=== PATIENT | female | born 1965 | race Caucasian/White ===

== ENCOUNTER 2020-11-09 08:48 | Outpatient (REF) | payer BC, SELFPAY ==
[2020-11-09 11:32] LABS: Glucose Urine UA NEG (NEG); Leukocyte Esterase Urine NEG (NEG); Nitrite Urine NEG (NEG); Specific Gravity - Urine 1.025 (1.005-1.025); Urine Blood TRACE (NEG); Urine Ketones NEG (NEG); Urine Protein NEG (NEG-TRACE)
[2020-11-09 11:35] LABS: Appearance Urine CLEAR; Color Urine YELLOW
[2020-11-09 11:47] LABS: Hematocrit 39.8 % (37-47); Hemoglobin 12.9 g/dl (12.0-16.0); Mean Corpuscular HGB Conc 32.4 g/dl (31.0-35.0); Mean Corpuscular Hemoglobin 30.9 pg (27.0-33.0); Mean Corpuscular Volume 95.2 fL (80-98); Mean Platelet Volume 11.2 fL (9.4-12.3); Platelet Count 305 X10*3/uL (160-400); Red Blood Count 4.18 X10*6/uL (4.20-5.50); Red Cell Distribution Width 12.2 % (11.0-16.0); White Blood Count 4.5 X10*3/uL (4.8-10.8)
[2020-11-09 12:00] LABS: RBC Urine 0-2 /HPF (0); Squamous Epithelial Cell Urine TRACE /LPF; WBC Urine 0 /HPF (0-4)
[2020-11-09 12:09] LABS: Alanine Aminotransferase 19 U/L (0-31); Albumin Level 4.2 g/dL (3.5-5.0); Alkaline Phosphatase 100 U/L (39-117); Anion Gap 11 (12-20); Aspartate Amino Transferase 31 U/L (5-31); Bilirubin Total 0.8 mg/dL (0.0-1.0); Blood Urea Nitrogen 18 mg/dL (9-16); Calcium 9.4 mg/dL (8.4-10.2); Carbon Dioxide 27 mmol/L (22-29); Chloride 107 mmol/L (96-108); Cholesterol 230 mg/dL; Estimated Glomerular Filt Rate > 60; Glucose Fasting 96 mg/dL (60-99); HDL Cholesterol 58 mg/dL; LDL Cholesterol Calculated 154 mg/dl; Potassium 4.4 mmol/L (3.3-5.1); Sodium 141 mmol/L (135-145); Total Protein 6.7 g/dL (6.5-8.0); Triglycerides 91 mg/dL
[2020-11-09 12:16] LABS: TSH reflex Free T4 0.91 uIU/mL (0.32-4.0); Vitamin D 25-OH Total 33.5 ng/mL (>30)
== END 2020-11-09 08:49 | disposition home or self-care (01) ==
LOC: HO.HMGCLDS 08:48
PROVIDERS: PCP Internal Medicine; Visit Provider Internal Medicine
DX: Z00.00 Encounter for general adult medical examination without abnormal findings (principal); Z86.39 Personal history of other endocrine, nutritional and metabolic disease; Z90.710 Acquired absence of both cervix and uterus
CPT/HCPCS: 36415; 80053; 80061; 81001; 82306; 84443; 85027

== ENCOUNTER 2021-07-14 10:00 | Outpatient (REF) | payer BC, SELFPAY ==
[2021-07-14 11:28] LABS: Hematocrit 39.8 % (37.0-47.0); Hemoglobin 13.3 g/dl (12.0-16.0); Mean Corpuscular HGB Conc 33.4 g/dl (31.0-35.0); Mean Corpuscular Hemoglobin 31.5 pg (27.0-33.0); Mean Corpuscular Volume 94.3 fL (80.0-98.0); Mean Platelet Volume 10.2 fL (9.4-12.3); Platelet Count 315 X10*3/uL (160-400); Red Blood Count 4.22 X10*6/uL (4.20-5.50); Red Cell Distribution Width 11.9 % (11.0-16.0); White Blood Count 6.6 X10*3/uL (4.8-10.8)
[2021-07-14 11:52] LABS: Alanine Aminotransferase 17 U/L (0-31); Albumin Level 4.2 g/dL (3.5-5.0); Alkaline Phosphatase 107 U/L (39-117); Anion Gap 11 (12-20); Aspartate Amino Transferase 22 U/L (5-31); Bilirubin Total 0.7 mg/dL (0.0-1.0); Blood Urea Nitrogen 18 mg/dL (9-16); Calcium 9.8 mg/dL (8.4-10.2); Carbon Dioxide 29 mmol/L (22-29); Chloride 103 mmol/L (96-108); Cholesterol 259 mg/dL; Estimated Glomerular Filt Rate > 60; Glucose Fasting 93 mg/dL (60-99); HDL Cholesterol 61 mg/dL; LDL Cholesterol Calculated 181 mg/dl; Potassium 4.6 mmol/L (3.3-5.1); Sodium 138 mmol/L (135-145); Total Protein 7.1 g/dL (6.5-8.0); Triglycerides 88 mg/dL
[2021-07-14 12:14] LABS: Vitamin D 25-OH Total 34.8 ng/mL (>30)
== END 2021-07-14 10:01 | disposition home or self-care (01) ==
LOC: HO.HMGCLDS 10:00
PROVIDERS: PCP Internal Medicine; Visit Provider Internal Medicine
DX: Z00.00 Encounter for general adult medical examination without abnormal findings (principal); Z13.220 Encounter for screening for lipoid disorders
CPT/HCPCS: 36415; 80053; 80061; 82306; 85027

== ENCOUNTER 2021-11-04 12:19 | Outpatient (REF) | payer BC, SELFPAY ==
[2021-11-04 13:52] LABS: Hematocrit 38.3 % (37.0-47.0); Hemoglobin 12.7 g/dl (12.0-16.0); Mean Corpuscular HGB Conc 33.2 g/dl (31.0-35.0); Mean Corpuscular Hemoglobin 31.1 pg (27.0-33.0); Mean Corpuscular Volume 93.6 fL (80.0-98.0); Mean Platelet Volume 10.2 fL (9.4-12.3); Platelet Count 350 X10*3/uL (160-400); Red Blood Count 4.09 X10*6/uL (4.20-5.50); Red Cell Distribution Width 12.3 % (11.0-16.0); White Blood Count 6.3 X10*3/uL (4.8-10.8)
[2021-11-04 14:00] LABS: Appearance Urine CLEAR; Color Urine YELLOW; Glucose Urine UA NEG (NEG); Leukocyte Esterase Urine NEG (NEG); Nitrite Urine NEG (NEG); Specific Gravity - Urine 1.025 (1.005-1.025); Urine Blood NEG (NEG); Urine Ketones NEG (NEG); Urine Protein NEG (NEG-TRACE)
[2021-11-04 14:05] LABS: Alanine Aminotransferase 11 U/L (0-31); Albumin Level 4.1 g/dL (3.5-5.0); Alkaline Phosphatase 109 U/L (39-117); Anion Gap 11 (12-20); Aspartate Amino Transferase 20 U/L (5-31); Bilirubin Total 0.3 mg/dL (0.0-1.0); Blood Urea Nitrogen 15 mg/dL (9-16); Calcium 9.7 mg/dL (8.4-10.2); Carbon Dioxide 28 mmol/L (22-29); Chloride 104 mmol/L (96-108); Estimated Glomerular Filt Rate > 60; Glucose Random 94 mg/dL (60-115); Lipase 33 U/L (8-78); Potassium 4.1 mmol/L (3.3-5.1); Sodium 139 mmol/L (135-145); Total Protein 6.9 g/dL (6.5-8.0)
[2021-11-04 14:13] LABS: Squamous Epithelial Cell Urine TRACE /LPF
[2021-11-04 14:14] LABS: RBC Urine 0-2 /HPF (0); WBC Urine 0 /HPF (0-4)
== END 2021-11-04 12:20 | disposition home or self-care (01) ==
LOC: HO.HMGCLDS 12:19
PROVIDERS: PCP Internal Medicine; Visit Provider Internal Medicine
DX: Z00.00 Encounter for general adult medical examination without abnormal findings (principal); K57.92 Diverticulitis of intestine, part unspecified, without perforation or abscess without bleeding; R10.9 Unspecified abdominal pain; K29.70 Gastritis, unspecified, without bleeding; Z86.39 Personal history of other endocrine, nutritional and metabolic disease; Z90.710 Acquired absence of both cervix and uterus
CPT/HCPCS: 36415; 80053; 81001; 83690; 85027

== ENCOUNTER 2021-11-05 11:21 | Outpatient (REF) | payer BC, SELFPAY | END 2021-11-05 11:22 | disposition home or self-care (01) | LOC: HO.HMGCLNP 11:21 | PROVIDERS: Visit Provider Internal Medicine | DX: K29.70 Gastritis, unspecified, without bleeding (principal) | CPT/HCPCS: 87338 ==

== ENCOUNTER 2021-11-05 14:33 | Outpatient (REF) | payer BC, SELFPAY ==
--- NOTE | ~2021-11-05 | CT_ITS ---
EXAMINATION: CT ABDOMEN AND PELVIS WITH CONTRAST CLINICAL INFORMATION: Unspecified abdominal pain. COMPARISON: None TECHNIQUE: Multidetector volumetric images were obtained from the superior aspect of the liver through the pubic symphysis following administration 85 mL of Omnipaque 350 intravenous contrast. Sagittal and coronal reformatted images were obtained on the technologist's workstation. Oral contrast: No This CT examination was performed using dose optimization techniques as appropriate, variously including the following: *Automated exposure control *Adjustment of mA and/or kV according to patient size (this includes techniques or standardized protocols for targeted exams where dose is matched to indication/reason for exam; i.e. extremities or head) *Use of iterative reconstruction technique DLP: 441 mGy-cm FINDINGS: LUNG BASES: Minimal platelike atelectasis in the lingula. The lung bases are clear. The heart size is normal. A small hiatal hernia suspected. LIVER, GALLBLADDER, AND BILIARY TREE: The liver is normal in size, shape, and attenuation. No focal hepatic lesion or biliary ductal dilatation is present. The gallbladder has been surgically removed. PANCREAS: Unremarkable. SPLEEN: Unremarkable. ADRENAL GLANDS: Unremarkable. KIDNEYS AND URETERS: The kidneys are normal in size, shape, and attenuation. No hydronephrosis, hydroureter, or calculi seen. No perinephric stranding. There is a 6 mm hypodensity in the lower pole right kidney likely cyst. BLADDER: Unremarkable. GASTROINTESTINAL TRACT: There is mild mural thickening involving a segment of jejunum in the left upper mid quadrant on axial image 33/3 through 41/3. Rest of the small bowel loops are normal caliber. Scattered stool and gas is seen in the colon without distention. ABDOMINAL WALL: No significant hernia is appreciated. LYMPH NODES: Normal. VASCULAR: Unremarkable. PELVIC VISCERA: Unremarkable. OSSEOUS STRUCTURES: There are degenerative disc changes throughout lumbar spine with mild ventral spondylosis at the L2-L3 and L3-L4 disc level. No aggressive lytic or sclerotic process seen. CT/CT abdomen pelvis w con IMPRESSION: Mild mural thickening involving proximal jejunal loops suggestive of enteritis. There is no proximal bowel obstruction. No abnormal lymph nodes seen. Small hiatal hernia. Fleischner guidelines were followed.
[2021-11-05] MEDS: iohexoL 350 MG/ML 100 ML INFUS..BTL IV (17:38)
[2021-11-05] MEDS: Barium Sulfate Oral (Berry) 450 ML ORAL.SUSP 900 ML PO (17:41)
== END 2021-11-05 14:34 | disposition home or self-care (01) ==
LOC: HO.CT 14:33
PROVIDERS: PCP Internal Medicine; Visit Provider Internal Medicine
DX: K57.92 Diverticulitis of intestine, part unspecified, without perforation or abscess without bleeding (principal); R10.9 Unspecified abdominal pain
CPT/HCPCS: 74177; Q9967

== ENCOUNTER 2023-09-08 06:42 | Outpatient (REF) | payer BC, SELFPAY ==
[2023-09-08 10:16] LABS: Appearance Urine Clear; Color Urine Yellow; Glucose Urine UA Negative (Negative); Leukocyte Esterase Urine Trace (Negative); Nitrite Urine Negative (Negative); PH 5.5 (5.0-9.0); UMIC TRIGGER UACC YES; Urine Blood Negative (Negative); Urine Ketones Negative (Negative); Urine Protein Negative (Neg-Trace)
[2023-09-08 10:17] LABS: MANUAL DIFF FLAG NO
[2023-09-08 10:22] LABS: Bacteria Urine None Seen (None Seen); Hyaline Casts Urine 0-2 /LPF (0-2); RBC Urine 0-2 /HPF (0-2); Squamous Epithelial Cell Urine 0-2 /HPF (0-2); WBC Urine 0-5 /HPF (0-5)
[2023-09-08 10:23] LABS: Basophils Absolute Auto 0.1 X10*3/uL (0.0-0.2); Basophils Percent Auto 1.2 % (0-2); Eosinophils Absolute Auto 0.3 X10*3/uL (0.0-0.4); Eosinophils Percent Auto 4.6 % (0-4); Hematocrit 36.9 % (37.0-47.0); Hemoglobin 12.2 g/dl (12.0-16.0); Imm Gran Abs Auto 0.02 X10*3/uL (0.00-0.03); Imm Gran Pct Auto 0.3 % (0.0-0.4); Lymphocytes Absolute Auto 2.3 X10*3/uL (1.2-4.9); Lymphocytes Percent Auto 39.6 % (20-40); Mean Corpuscular HGB Conc 33.1 g/dl (31.0-35.0); Mean Corpuscular Hemoglobin 31.2 pg (27.0-33.0); Mean Corpuscular Volume 94.4 fL (80.0-98.0); Mean Platelet Volume 10.7 fL (9.4-12.3); Monocytes Absolute Auto 0.4 X10*3/uL (0.1-1.2); Monocytes Percent Auto 6.9 % (2-11); Neutrophils Absolute Auto 2.8 x10*3/uL (2.0-8.3); Neutrophils Percent Auto 47.4 % (45-73); Platelet Count 302 X10*3/uL (160-400); Red Blood Count 3.91 X10*6/uL (4.20-5.50); Red Cell Distribution Width 12.2 % (11.0-16.0); White Blood Count 5.8 X10*3/uL (4.8-10.8)
[2023-09-08 11:17] LABS: Alanine Aminotransferase 11 U/L (0-31); Albumin Level 3.8 g/dL (3.5-5.0); Alkaline Phosphatase 89 U/L (39-117); Anion Gap 11 (12-20); Aspartate Amino Transferase 19 U/L (5-31); Bilirubin Total 0.3 mg/dL (0.0-1.0); Blood Urea Nitrogen 21 mg/dL (9-16); Calcium 8.8 mg/dL (8.4-10.2); Carbon Dioxide 27 mmol/L (22-29); Chloride 108 mmol/L (96-108); Cholesterol 232 mg/dL (<200); Estimated Glomerular Filt Rate > 60; Glucose Fasting 89 mg/dL (60-99); HDL Cholesterol 55 mg/dL (>40); LDL Cholesterol Calculated 158 mg/dL (<100); Potassium 3.9 mmol/L (3.3-5.1); Sodium 142 mmol/L (135-145); Total Protein 6.3 g/dL (6.5-8.0); Triglycerides 95 mg/dL (<150)
[2023-09-08 11:21] LABS: TSH reflex Free T4 1.63 uIU/mL (0.32-4.0); Vitamin D 25-OH Total 29.6 ng/mL (>30)
== END 2023-09-08 06:43 | disposition home or self-care (01) ==
LOC: HO.HMGCLDS 06:42
PROVIDERS: PCP Internal Medicine; Visit Provider Internal Medicine
DX: Z00.00 Encounter for general adult medical examination without abnormal findings (principal); E78.5 Hyperlipidemia, unspecified
CPT/HCPCS: 36415; 80053; 80061; 81001; 82306; 84443; 85025

== ENCOUNTER 2023-09-08 12:53 | Outpatient (AMB) | payer BC, SELFPAY ==
--- NOTE | 2023-09-08 13:14 | A.OFFPC_ITS ---
Vital Signs 09/08/23 13:17 09/08/23 13:45 Height 5 ft 6 in Weight 178 lb BMI 28.7 BP 126/78 136/88 Blood Pressure Location Lt brachial Lt brachial Position Sitting Sitting Pulse 83 Pulse Source Pulse Oximeter Pulse Oximetry (%) 98 Oxygen Delivery Method Room Air Intake Visit Reasons: lab request Intake Note: Pt is here today for a sick visit. Pt c/o headaches on the back of her head since July. Allergies Decongestant Allergy (Unknown, Uncoded 09/08/23 13:20) increased heart rate Tobacco use date assessed: 09/08/23 Dental Screening Dental Screen Date: 09/08/23 Did you have a dental visit in the last 12 months?: Yes Did you have a dental problem in the last 6 months where you did not have access to dental care?: No Was dental information given to patient?: Patient has dentist HPI HPI Comments History of Present Illness Details Pt presents for PE. Pt c/o chronic occipital headaches and neck pain and stiffness for 1 month. The pain is worse at the end of the day. She denies any change in vision nausea vomiting weakness or numbness in extremities or change in balance. She has not been under increased stress recently. [facility] Medical History (Updated 09/08/23 @ 13:54 by Laya Becerra MD) Hyperlipidemia Diverticulitis Abdominal pain Gastritis Postmenopausal Palpitations Mammogram normal Annual physical exam DJD (degenerative joint disease), lumbar H/O mixed hyperlipidemia Anxiety Surgical History H/O total hysterectomy H/O colonoscopy Family History Father No problems noted. Mother No problems noted. Social History Housing: House Alcohol intake: current Alcohol intake frequency: a few times a week Alcohol type: wine Patient Tobacco Use Status: Never used Tobacco e-Cigarette/Vaping Use: Never Used Current occupational status: employed Cognitive needs: No Hearing needs: No Vision needs: Yes Questionnaire PHQ-9 Over the last 2 weeks, how often have you been bothered by any of the following problems? 1. Little interest or pleasure in doing things: not at all 2. Feeling down, depressed, or hopeless: not at all 3. Trouble falling or staying asleep, or sleeping too much: more than half the days 4. Feeling tired or having little energy: not at all 5. Poor appetite or overeating: several days 6. Feeling bad about yourself - or that you are a failure or have let yourself or your family down: not at all 7. Trouble concentrating on things, such as reading the newspaper or watching television: not at all 8. Moving or speaking so slowly that other people could have noticed. Or the opposite - being so fidgety or restless that you have been moving around a lot more than usual: not at all 9. Thoughts that you would be better off or of hurting yourself in some way: not at all Total score: 3 Depression Screening Interpretation: Negative Depression Screening Done: Yes Source: Developed by Drs. Julien Bellamy, Farheen Mallory, Stanislaw Hernadez and colleagues, with an educational jonnie from [employer]. Thrive Questionnaire Date Thrive assessed: 11/04/21 I am a: Patient What is your living situation today?: I have a steady place to live Within the past 12 months, did the food you bought not last and you didn't have the money to get more?: Never true Within the past 12 months, did you worry whether your food would run out before you got money to buy more?: Never true Do you have trouble paying for medicines?: No Do you have trouble getting transportation to medical appointments?: No Do you have trouble paying your heating and electricity bill?: No Do you have trouble taking care of your child, family member or friend?: No Do you have trouble with day-to-day activities such as bathing, preparing meals, shopping, managing finances, etc.?: No Are you currently unemployed and looking for a job?: No Are you interested in more education?: No Please select the resources that you would like help with: None THRIVE Score: 0 AUDIT C Alcohol Use Questionnaire (AUDIT-C) 1. How often do you have a drink containing alcohol?: 2-3 times a week 2. How many drinks containing alcohol do you have on a typical day when you are drinking?: 1 or 2 3. How often do you have six or more drinks on one occasion?: Never Total Score: 3 STEVO-7 AMB Questionnaire STEVO-7 Date STEVO - 7 assessed: 09/08/23 Feeling nervous, anxious, or on edge: 1 = Several days Not being able to stop or control worryin = Several days Worrying too much about different things: 0 = Not at all Trouble relaxin = More than half the days Being so restless that it is hard to sit still: 0 = Not at all Becoming easily annoyed or irritable: 0 = Not at all Feeling afraid as if something awful might happen: 0 = Not at all Total STEVO-7 score (0-4 normal; 5-9 mild; 10-14 moderate; 15-21 severe): 4 Source: Developed by Drs. Julien Bellamy, Farheen Mallory, Stanislaw Hernadez and colleagues, with an educational jonnie from [employer]. Review of Systems Const All systems reviewed & are unremarkable except as noted in HPI and below Reports no additional complaints Eyes Reports no additional complaints ENT Reports no additional complaints Card Reports no additional complaints Resp Reports no additional complaints GI Reports no additional complaints Reports no additional complaints Physical exam (Primary Care) Vital Signs: Last Vital Signs Pulse 83 09/08/23 13:17 BP 126/78 09/08/23 13:17 Pulse Ox 98 09/08/23 13:17 Oxygen Delivery Method Room Air 09/08/23 13:17 BMI result Body Mass Index 28.7 Tobacco/Smoking Status: Tobacco use Status Tobacco use date assessed 09/08/23 09/08/23 13:21 Patient Tobacco Use Status Never used Tobacco 09/08/23 13:21 e-Cigarette/Vaping Use Never Used 09/08/23 13:14 PHQ-9: PHQ-9 Score PHQ-9: Total score 3 09/08/23 13:23 Depression Screening Interpretation: Negative Thrive Assessment: Date of Thrive Assessment Date Thrive assessed 11/04/21 09/08/23 13:14 Const General: no acute distress HENMT Head: Yes normal to inspection Ears: hearing grossly normal bilaterally Face and sinus: Yes normal facial exam Mouth: Normal oral and palatal mucosa present Throat: Yes posterior oropharynx normal Eyes General: appearance normal, both eyes and all related structures Neck Other: A reproducible tenderness and muscle spent in paraspinal lower cervical upper thoracic region Neck: Yes no lymphadenopathy and Yes supple Resp Effort & Inspection: normal respiratory effort Auscultation: clear to auscultation bilaterally Cardio Rhythm: regular rhythm Heart sounds: S1 normal heart sound present and S2 normal heart sound present GI Inspection: Yes normal to inspection Palpation (GI): Soft to palpation Percussion: Yes normal to percussion Auscultation: normal bowel sounds Neuro Cranial nerves: Yes CN's II-XII intact bilaterally Gait exam (Neuro): Normal gait present Motor exam (neuro): 5/5 motor strength present throughout Assessment and Plan Assessment & Plan (1) Annual physical exam: Code(s): Z00.00 - Encounter for general adult medical examination without abnormal findings Plan: Well-balanced diet regular physical activity discussed with the patient. She is up-to-date with mammogram colonoscopy and had hysterectomy (2) Hyperlipidemia: Code(s): E78.5 - Hyperlipidemia, unspecified Plan: Continue low-cholesterol diet (3) Neck pain: Code(s): M54.2 - Cervicalgia Plan: Stretching neck exercises mindfulness and yoga discussed with the patient. She will return in 1 month Coding Level of Care Code Est Pt Prev Care 40-64y(04140) Diagnoses Annual physical exam Z00.00 Hyperlipidemia E78.5 Neck pain M54.2
[2023-09-08 13:17] VITALS: BP 126/78; PULSE 83; O2SAT 98; BMI 28.7
[2023-09-08 13:45] VITALS: BP 136/88
== END 2023-09-08 13:55 | disposition home or self-care (01) ==
PROVIDERS: PCP Internal Medicine; Visit Provider Internal Medicine
DX: Z00.00 Encounter for general adult medical examination without abnormal findings (principal); E78.5 Hyperlipidemia, unspecified; M54.2 Cervicalgia
CPT/HCPCS: 99396

== ENCOUNTER 2023-09-29 13:45 | Outpatient (AMB) | payer BC, SELFPAY ==
[2023-09-29 13:51] VITALS: BP 128/80; PULSE 78; O2SAT 98; BMI 28.4
--- NOTE | 2023-09-29 13:51 | MHC.PC.OV ---
Vital Signs 09/29/23 13:51 Height 5 ft 6 in Weight 176 lb BMI 28.4 BP 128/80 Blood Pressure Location Lt brachial Position Sitting Pulse 78 Pulse Source Pulse Oximeter Pulse Oximetry (%) 98 Oxygen Delivery Method Room Air Intake Visit Reasons: 1 Month Intake Note: Pt is here today for 1 month follow up visit on headaches and anxiety. Pt states that she is still not feeling good. Pt states that she had a flu 2 weeks ago. Allergies Decongestant Allergy (Unknown, Uncoded 09/29/23 13:54) increased heart rate Medication List - Last Reconciled 09/29/23 by Laya Becerra MD No Known Home Meds Tobacco use date assessed: 09/29/23 HPI 1 Month HPI Details Patient presents complaining of worsening anxiety and insomnia. She denies any external triggers. Patient has a history of anxiety and used to take Lexapro. 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 Patient denies suicidal ideation change in appetite. Patient complains of chronic sinus congestion postnasal drip and would like to see ENT for evaluation. [facility] Medical History Hyperlipidemia Diverticulitis Abdominal pain Gastritis Postmenopausal Palpitations Mammogram normal Annual physical exam DJD (degenerative joint disease), lumbar H/O mixed hyperlipidemia Anxiety Surgical History H/O total hysterectomy H/O colonoscopy Family History Father No problems noted. Mother No problems noted. Social History Housing: House Alcohol intake: current Alcohol intake frequency: a few times a week Alcohol type: wine Patient Tobacco Use Status: Never used Tobacco e-Cigarette/Vaping Use: Never Used Current occupational status: employed Cognitive needs: No Hearing needs: No Vision needs: Yes Questionnaire Thrive Questionnaire Date Thrive assessed: 11/04/21 STEVO-7 AMB Questionnaire STEVO-7 Date STEVO - 7 assessed: 09/08/23 Source: Developed by Drs. Julien Bellamy, Farheen Mallory, Stanislaw Hernadez and colleagues, with an educational jonnie from [employer]. Review of Systems Const All systems reviewed & are unremarkable except as noted in HPI and below Reports no additional complaints Eyes Reports no additional complaints ENT Reports no additional complaints Card Reports no additional complaints Resp Reports no additional complaints GI Reports no additional complaints Reports no additional complaints Physical exam (Primary Care) Vital Signs: Last Vital Signs Pulse 78 09/29/23 13:51 BP 128/80 09/29/23 13:51 Pulse Ox 98 09/29/23 13:51 Oxygen Delivery Method Room Air 09/29/23 13:51 BMI result Body Mass Index 28.4 Tobacco/Smoking Status: Tobacco use Status Tobacco use date assessed 09/29/23 09/29/23 13:57 Patient Tobacco Use Status Never used Tobacco 09/29/23 13:57 e-Cigarette/Vaping Use Never Used 09/29/23 13:57 Thrive Assessment: Date of Thrive Assessment Date Thrive assessed 11/04/21 09/29/23 13:57 Const General: no acute distress HENMT General nose exam: Normal external nose present Neck Neck: Yes no lymphadenopathy and Yes supple Resp Effort & Inspection: normal respiratory effort Auscultation: clear to auscultation bilaterally Cardio Rhythm: regular rhythm Heart sounds: S1 normal heart sound present and S2 normal heart sound present GI Inspection: Yes normal to inspection Palpation (GI): Soft to palpation Assessment and Plan Assessment & Plan (1) Chronic sinus infection: Code(s): J32.9 - Chronic sinusitis, unspecified Plan: Referred to ENT continue Flonase and antihistamine (2) Anxiety: Code(s): F41.9 - Anxiety disorder, unspecified Plan: She was management mindfulness discussed with the patient. She will schedule an appointment with a counselor. Lexapro 10 mg daily will be restarted and zolpidem 5 mg 14 Tablets is prescribed to take as needed only follow-up in 1 month Orders: Referrals Ear/Nose/Throat Referral J32.9 - Chronic sinusitis, unspecified Medications: New zolpidem may repeat once if no response in 30-60 minutes 5 mg PO BEDTIME PRN 14 tabs 0RF insomnia escitalopram oxalate (Lexapro) 10 mg PO DAILY 90 tabs 1RF Coding Level of Care Code Est Pt Level 4 (42082) Diagnoses Chronic sinus infection J32.9 Anxiety F41.9
== END 2023-09-29 14:39 | disposition home or self-care (01) ==
PROVIDERS: PCP Internal Medicine; Visit Provider Internal Medicine
DX: J32.9 Chronic sinusitis, unspecified (principal); F41.9 Anxiety disorder, unspecified
CPT/HCPCS: 99214

== ENCOUNTER 2024-06-18 10:35 | Outpatient (AMB) | payer BC, SELFPAY ==
--- NOTE | 2024-06-18 10:39 | A.OFFPC_ITS ---
Vital Signs 06/18/24 10:40 Height 5 ft 6 in Weight 175 lb BMI 28.2 BP 122/80 Blood Pressure Location Rt brachial Position Sitting Pulse 80 Pulse Source Pulse Oximeter Pulse Oximetry (%) 97 Intake Visit Reasons: Annual PE Allergies Decongestant Allergy (Unknown, Uncoded 06/18/24 10:43) increased heart rate Tobacco use date assessed: 09/29/23 Dental Screening Dental Screen Date: 09/08/23 HPI Annual PE HPI Details Patient presents for physical. She complains of increased thirst and urination for the last 2 weeks feeling overly fatigued. She reports chronic insomnia. Patient denies fever chills arthralgia pulmonary cardiac or GI complaints . patient works out every morning at the gym. Chronic depression stable on escitalopram. [facility] Medical History (Updated 06/18/24 @ 11:53 by Laya Becerra MD) Fatigue Hyperlipidemia Diverticulitis Abdominal pain Gastritis Postmenopausal Palpitations Mammogram normal Annual physical exam DJD (degenerative joint disease), lumbar H/O mixed hyperlipidemia Anxiety Surgical History H/O total hysterectomy H/O colonoscopy Family History Father No problems noted. Mother No problems noted. Social History Housing: House Alcohol intake: current Alcohol intake frequency: a few times a week Alcohol type: wine Patient Tobacco Use Status: Never used Tobacco e-Cigarette/Vaping Use: Never Used Current occupational status: employed Cognitive needs: No Hearing needs: No Vision needs: Yes Questionnaire PHQ-9 Over the last 2 weeks, how often have you been bothered by any of the following problems? 1. Little interest or pleasure in doing things: not at all 2. Feeling down, depressed, or hopeless: not at all 3. Trouble falling or staying asleep, or sleeping too much: more than half the days 4. Feeling tired or having little energy: nearly every day 5. Poor appetite or overeating: not at all 6. Feeling bad about yourself - or that you are a failure or have let yourself or your family down: not at all 7. Trouble concentrating on things, such as reading the newspaper or watching television: more than half the days 8. Moving or speaking so slowly that other people could have noticed. Or the opposite - being so fidgety or restless that you have been moving around a lot more than usual: not at all 9. Thoughts that you would be better off or of hurting yourself in some way: not at all Total score: 7 Depression Screening Interpretation: Negative Depression Screening Done: Yes 99311 - PHQ-9 Billing: Yes Source: Developed by Drs. Julien Bellamy, Farheen Mallory, Stanislaw Hernadez and colleagues, with an educational jonnie from [employer]. Thrive Questionnaire Date Thrive assessed: 06/18/24 I am a: Patient What is your living situation today?: I have a steady place to live Within the past 12 months, did the food you bought not last and you didn't have the money to get more?: Never true Within the past 12 months, did you worry whether your food would run out before you got money to buy more?: Never true Do you have trouble paying for medicines?: No Do you have trouble getting transportation to medical appointments?: No Do you have trouble paying your heating and electricity bill?: No Do you have trouble taking care of your child, family member or friend?: No Do you have trouble with day-to-day activities such as bathing, preparing meals, shopping, managing finances, etc.?: No Are you currently unemployed and looking for a job?: No Are you interested in more education?: No Please select the resources that you would like help with: None Currently or been in a relationship where the following occur: No concerns reported THRIVE Score: 0 AUDIT C Alcohol Use Questionnaire (AUDIT-C) 1. How often do you have a drink containing alcohol?: 2-3 times a week 2. How many drinks containing alcohol do you have on a typical day when you are drinking?: 1 or 2 3. How often do you have six or more drinks on one occasion?: Never Total Score: 3 Score Reviewed/Action Taken: Yes STEVO-7 AMB Questionnaire STEVO-7 Date STEVO - 7 assessed: 06/18/24 Feeling nervous, anxious, or on edge: 1 = Several days Not being able to stop or control worryin = Not at all Worrying too much about different things: 0 = Not at all Trouble relaxin = Several days Being so restless that it is hard to sit still: 0 = Not at all Becoming easily annoyed or irritable: 0 = Not at all Feeling afraid as if something awful might happen: 0 = Not at all Total STEVO-7 score (0-4 normal; 5-9 mild; 10-14 moderate; 15-21 severe): 2 Source: Developed by Drs. Julien Bellamy, Farheen Mallory, Stanislaw Hernadez and colleagues, with an educational jonnie from [employer]. STEVO-7 Assessment Billing STEVO-7 Assessment Tool: STEVO-7 Assessment 92161 Review of Systems Const All systems reviewed & are unremarkable except as noted in HPI and below Eyes Reports no additional complaints ENT Reports no additional complaints Card Reports no additional complaints Resp Reports no additional complaints GI Reports no additional complaints Reports no additional complaints Physical exam (Primary Care) Vital Signs: Last Vital Signs Pulse 80 06/18/24 10:40 BP 122/80 06/18/24 10:40 Pulse Ox 97 06/18/24 10:40 BMI result Body Mass Index 28.2 Tobacco/Smoking Status: Tobacco use Status Tobacco use date assessed 09/29/23 06/18/24 10:40 Patient Tobacco Use Status Never used Tobacco 06/18/24 10:40 e-Cigarette/Vaping Use Never Used 06/18/24 10:40 PHQ-9: PHQ-9 Score PHQ-9: Total score 7 06/18/24 10:44 Depression Screening Interpretation: Negative Thrive Assessment: Date of Thrive Assessment Date Thrive assessed 06/18/24 06/18/24 10:44 Currently or been in a relationship where the following occur: No concerns reported Const General: no acute distress HENMT Head: Yes normal to inspection Ears: hearing grossly normal bilaterally Mouth: Normal oral and palatal mucosa present Throat: Yes posterior oropharynx normal Eyes General: appearance normal, both eyes and all related structures Neck Neck: Yes no lymphadenopathy and Yes supple Resp Effort & Inspection: normal respiratory effort Auscultation: clear to auscultation bilaterally Cardio Rhythm: regular rhythm Heart sounds: S1 normal heart sound present and S2 normal heart sound present GI Inspection: Yes normal to inspection Palpation (GI): Soft to palpation Percussion: Yes normal to percussion Auscultation: normal bowel sounds Coding Level of Care Code Est Pt Prev Care 40-64y(00007) Diagnoses Hyperlipidemia E78.5 Anxiety F41.9 Fatigue R53.83 Annual physical exam Z00.00 Additional Codes STEVO-7 Assessment Billing - STEVO-7 Assessment Tool: STEVO-7 Assessment 35810 ([id number]) PHQ-9 - 75850 - PHQ-9 Billing: Yes ([id number]) Assessment & Plan Assessment & Plan (1) Hyperlipidemia: Comment: Patient declined taking statin Code(s): E78.5 - Hyperlipidemia, unspecified Category: Medical Plan: Low-cholesterol diet discussed with the patient she will return for fasting blood work (2) Anxiety: Code(s): F41.9 - Anxiety disorder, unspecified Category: Medical Plan: Continue Lexapro (3) Fatigue: Code(s): R53.83 - Other fatigue Category: Medical Plan: Obtain blood work, stress management and regular mindfulness exercises discussed with the patient (4) Annual physical exam: Code(s): Z00.00 - Encounter for general adult medical examination without abnormal findings Category: Medical Plan: Well-balanced diet regular physical activity discussed with the patient she is up-to-date with mammogram Pap smear by urogynecology physician and colonoscopy Orders: Orders Lipid Panel Today E78.5 - Hyperlipidemia, unspecified, F41.9 - Anxiety disorder, unspecified, R53.83 - Other fatigue Complete Blood Count Auto Diff Today E78.5 - Hyperlipidemia, unspecified, F41.9 - Anxiety disorder, unspecified, R53.83 - Other fatigue IRON PROFILE Today E78.5 - Hyperlipidemia, unspecified, F41.9 - Anxiety disorder, unspecified, R53.83 - Other fatigue Hemoglobin A1c Today E78.5 - Hyperlipidemia, unspecified, F41.9 - Anxiety disorder, unspecified, R53.83 - Other fatigue Comprehensive [place]. Panel Fast Today E78.5 - Hyperlipidemia, unspecified, F41.9 - Anxiety disorder, unspecified, R53.83 - Other fatigue Vitamin B12 and Folate Today E78.5 - Hyperlipidemia, unspecified, F41.9 - Anxiety disorder, unspecified, R53.83 - Other fatigue Vitamin D 25-OH Total Today E78.5 - Hyperlipidemia, unspecified, F41.9 - Anxiety disorder, unspecified, R53.83 - Other fatigue TSH reflex Free T4 Today R53.83 - Other fatigue
[2024-06-18 10:40] VITALS: BP 122/80; PULSE 80; O2SAT 97; BMI 28.2
--- OUTSIDE RECORDS SUMMARY | 2024-06-25 12:40 | XMS_ITS | Patient Health Record ---
Author Organization [facility] abdirashid [place] Address [address] [place] [address] Care Team Providers Care Debt And Budget Counselor Name Role Phone Hernan GUZMNA, Laya Primary Care Provider Dung Colby Unavailable [phone] Allergies Allergen (clinical drug ingredient) Drug/Non Drug Allergy documented on EMR Reaction Allergy Type Onset Date Status Sudafed Unknown Drug Allergy Active Reason For Referral No Information Social History Tobacco Use: Social History Observation Description Date Details (start date - stop date) Never Smoker NA - NA Tobacco Use/Smoking Question Answer Notes Are you a: nonsmoker Additional Findings: Tobacco Non-User Current no n-smoker Alcohol Screen Question Answer Notes Did you have a drink contain ing alcohol in the past year? Yes How often did you have a dri nk containing alcohol in the past year? 2 to 3 times a week (3 points) How many drinks did you have on a typical day when you were drinking in the past year? 1 or 2 drinks (0 point) Points 3 Interpretation Positive Tobacco use other than smoking: Question Answer Notes Are you an other tobacco user? No Problems Problem Type SNOMED Code ICD Code Onset Dates Problem Status W/U Status Risk Notes Problem 123828319 Hammer toe of right foot (M20.41) Active confirmed Problem [id number] Hammer toe of left foot (M20.42) Active confirmed Plan Of Treatment No Information Insurance Providers Payer Name Payer Address Payer Phone Subscriber Number Group Number Insured Name Patient Relationship to Insured Coverage Start Date Coverage End Date [facility] [address] [place] [address] [phone] [id number] Alfredo Petersen Spouse - patient is the spouse of the insured Medical (General) History Medical History History ICD Code Anxiety Back,Hip,and Knee pain CAD (Cholesterol) Depression Gall bladder problems Chicken pox Sciatica Surgical History Surgery Date(Month/Year) hysterectomy 12/13/2019 gall bladder Hospitalization History Reason Date(Month/Year) [facility] Hysterectomy 12/13/19
== END 2024-06-18 11:57 | disposition home or self-care (01) ==
PROVIDERS: PCP Internal Medicine; Visit Provider Internal Medicine
DX: E78.5 Hyperlipidemia, unspecified (principal); F41.9 Anxiety disorder, unspecified; R53.83 Other fatigue; Z00.00 Encounter for general adult medical examination without abnormal findings

== ENCOUNTER → 2024-06-18 10:35 | Outpatient (BNVA) | payer BC, SELFPAY | PROVIDERS: PCP Internal Medicine; Visit Provider Internal Medicine | DX: Z00.00 Encounter for general adult medical examination without abnormal findings (principal); E78.5 Hyperlipidemia, unspecified; F41.9 Anxiety disorder, unspecified; R53.83 Other fatigue; Z79.899 Other long term (current) drug therapy | CPT/HCPCS: 96127 ==

== ENCOUNTER 2024-06-19 06:42 | Outpatient (REF) | payer BC, SELFPAY ==
[2024-06-19 10:17] LABS: MANUAL DIFF FLAG NO
[2024-06-19 10:33] LABS: Basophils Absolute Auto 0.1 X10*3/uL (0.0-0.2); Basophils Percent Auto 1.6 % (0-2); Eosinophils Absolute Auto 0.3 X10*3/uL (0.0-0.4); Eosinophils Percent Auto 4.6 % (0-4); Hematocrit 37.7 % (37.0-47.0); Hemoglobin 12.4 g/dl (12.0-16.0); Imm Gran Abs Auto 0.02 X10*3/uL (0.00-0.03); Imm Gran Pct Auto 0.3 % (0.0-0.4); Lymphocytes Absolute Auto 1.6 X10*3/uL (1.2-4.9); Lymphocytes Percent Auto 24.7 % (20-40); Mean Corpuscular HGB Conc 32.9 g/dl (31.0-35.0); Mean Corpuscular Hemoglobin 30.8 pg (27.0-33.0); Mean Corpuscular Volume 93.8 fL (80.0-98.0); Mean Platelet Volume 10.4 fL (9.4-12.3); Monocytes Absolute Auto 0.4 X10*3/uL (0.1-1.2); Monocytes Percent Auto 6.5 % (2-11); Neutrophils Absolute Auto 3.9 x10*3/uL (2.0-8.3); Neutrophils Percent Auto 62.3 % (45-73); Platelet Count 309 X10*3/uL (160-400); Red Blood Count 4.02 X10*6/uL (4.20-5.50); Red Cell Distribution Width 12.1 % (11.0-16.0); White Blood Count 6.3 X10*3/uL (4.8-10.8)
[2024-06-19 10:36] LABS: Estimated Average Glucose 105 mg/dL; Hemoglobin A1C 114.1344 umol/L; Hemoglobin A1c % 5.3 % (<6.0); Total Hemoglobin (HGBA1C) 3268.9327 umol/L
[2024-06-19 11:06] LABS: Alanine Aminotransferase 17 U/L (0-31); Alkaline Phosphatase 90 U/L (39-117); Anion Gap 10 (12-20); Aspartate Amino Transferase 29 U/L (5-31); Bilirubin Total 0.5 mg/dL (0.0-1.0); Blood Urea Nitrogen 17 mg/dL (9-16); Calcium 9.2 mg/dL (8.4-10.2); Carbon Dioxide 27 mmol/L (22-29); Chloride 108 mmol/L (96-108); Cholesterol 256 mg/dL (<200); Estimated Glomerular Filt Rate > 60; Glucose Fasting 104 mg/dL (60-99); HDL Cholesterol 57 mg/dL (>40); Iron 80 mcg/dL (30-160); LDL Cholesterol Calculated 174 mg/dL (<100); Percent Iron Saturation 31 % (15-50); Potassium 3.9 mmol/L (3.3-5.1); Sodium 141 mmol/L (135-145); TSH reflex Free T4 1.68 uIU/mL (0.32-4.0); Total Iron Binding Capacity 254 mcg/dL (228-428); Total Protein 6.8 g/dL (6.5-8.0); Triglycerides 125 mg/dL (<150); Unsaturated Iron Binding 174 ug/dL; Vitamin D 25-OH Total 50.1 ng/mL (>30)
[2024-06-19 11:20] LABS: Folate 9.9 ng/mL (> or = 4.0); Vitamin B12 452 pg/mL (200-900)
--- OUTSIDE RECORDS SUMMARY | 2024-06-25 16:13 | XMS_ITS | Data Portability ---
Author Organization [place] - [facility] Address [address] [address] Care Team Providers Care Sports Specialist Name Role Phone ROYER BOONE Primary Care Provider ROYER BOONE Referring Provider [phone] Assessment No assessment recorded. Plan of Treatment Reminders Order Date Submit Date Provider Last Modified By Organization Details Last Modified Time Details Appointments None recorded. Lab None recorded. Referral physical therapist referral [address] [facility], [address] [place] [address], [phone], 14:35:17 Procedures None recorded. Surgeries None recorded. Imaging None recorded. Medication Orders None recorded. Patient TargetsNo targets recorded. Patient InstructionsNo instructions recorded. Reason for Referral Physical Therapist Referral for Lumbar disc prolapse with radiculopathy back and left thigh pain home exercise program Referring Physician: Raul Maza, Orthopedic Surgery, Encounter Date: 06/14/2022 Results Created Date Observation Date Name Description Value Unit Range Abnormal Flag Note LastModifiedBy Organization Detail LastModifiedTime 06/07/20 22 04/10/2022 MRI, lumba r spine , w/o contr ast No observ ation record ed. [email or web address] Not Available 2021 15:38:27 06/07/20 22 04/11/2022 MRI, lumba r spine , w/o contr ast No observ ation record ed. [email or web address] Not Available 2021 15:40:26 06/07/20 22 04/15/2022 XR, hip, unila teral , 2 or 3 view No observ ation record ed. [email or web address] Not Available 2021 15:46:34 06/07/20 22 07/08/2016 MRI, lumba r spine , w/o contr ast No observ ation record ed. [email or web address] Not Available 2021 16:06:12 06/07/20 22 01/29/2015 MRI, lumba r spine , w/o contr ast No observ ation record ed. [email or web address] Not Available 2021 16:08:21 06/07/20 22 11/26/2008 CT, cervi sarahy spine , w/o contr ast No observ ation record ed. [email or web address] Not Available 2021 16:18:31 Result Notes None recorded. Procedures Surgical History None recorded. Imaging Results Imaging Date Name Status LastModified by [email or web address] Details LastModified Time 04/10/2022 MRI, lumbar spine, w/o contrast completed Information not available 06/07/2022 15:38:27 04/11/2022 MRI, lumbar spine, w/o contrast completed Information not available 06/07/2022 15:40:26 04/15/2022 XR, hip, unilateral, 2 or 3 view completed Information not available 06/07/2022 15:46:34 07/08/2016 MRI, lumbar spine, w/o contrast completed Information not available 06/07/2022 16:06:12 01/29/2015 MRI, lumbar spine, w/o contrast completed Information not available 06/07/2022 16:08:21 11/26/2008 CT, cervical spine, w/o contrast completed Information not available 06/07/2022 16:18:31 Procedure Notes None recorded. Medical Equipment None Reported. Allergies No known drug allergies Medications Name Sig Start Date Stop Date Status Note LastModified by Organization Details LastModified Time tizanidine 2 mg tablet TAKE 1 TABLET BY MOUTH EVERY 8 HOURS,FOR 5 DAYS, NEEDED FOR MUSCLE SPASM active Not Available Not Available No t Available tramadol 50 mg tablet TAKE 1 TABLET BY MOUTH EVERY 8 HOURS NEEDED FOR PAIN FOR 5 DAYS active Not Available Not Available No t Available dexamethaso ne 4 mg tablet TAKE 1 TABLET BY MOUTH TWICE A DAY active Not Available Not Available No t Available docusate sodium 100 mg capsule TAKE 1 CAPSULE BY MOUTH TWICE A DAY NEEDED FOR CONSTIPAT ION active Not Available Not Available No t Available ibuprofen 600 mg tablet TAKE 1 TABLET BY MOUTH EVERY 6 HOURS NEEDED FOR PAIN MAX 2400 MG/DAY active Not Available Not Available No t Available methylpredn isolone 4 mg tablets in a dose pack TAKE DIRECTED PER PACKAGE active Not Available Not Available No t Available ondansetron 4 mg disintegrat ing tablet DISSOLVE 1 TABLET BY MOUTH EVERY 3 TO 4 HOURS NEEDED FOR NAUSEA active Not Available Not Available No t Available sertraline 50 mg tablet TAKE 1/2 TABLET BY MOUTH ONCE A DAY X1 WEEK, THEN 1 TABLET DAILY THEREAFTE R active Not Available Not Available No t Available amoxicillin 500 mg-potnoreeniu m clavulanate 125 mg tablet TAKE 1 TABLET BY MOUTH EVERY 8 HOURS FOR 10 DAYS active Not Available Not Available No t Available oxycodone 5 mg tablet TAKE 1 TABLET BY MOUTH EVERY 4 HOURS NEEDED FOR PAIN 06/14 completed Not Available Not Available Not Available pregabalin 75 mg capsule TAKE 1 CAPSULE BY MOUTH TWICE A DAY active Not Available Not Available No t Available pregabalin 150 mg capsule TAKE 1 CAPSULE BY MOUTH TWICE A DAY active Not Available Not Available No t Available Vitals Date Recorded Body height Body mass index (BMI) Body weight Provider Name and Address Organization Details Last Updated DateTime 06/14/2022 166.37 cm 27.9 kg/m2 49371.7 g Porsha Brady MA [facility] 06/14/2022 13:20:44 Social History Question Answer Notes LastModified by Organizat ion Details LastModified Time Tobacco Smoking Status Never Smoker [facility]orsha [facility] 06/14/2022 13:23:38 What Is Your Level Of Alcohol Consumption? Moderate Information not available 06/14/2022 Do You Use Any Illicit Or Recreational Drugs? No Information not available 06/14/2022 Sex: Unknown Functional Status None recorded. Mental Status None recorded. Family History Nothing Reported. Medical History Condition Response Diabetes N Back Pain Y Heart Disease N Cancer N Thyroid Problems N Hypertension N Lung Disease N Kidney Disease N Gynecological HistoryNo gynecological history recorded. Obstetrics History GPAL:G 0 P 0 0 0 0 Past Encounters Encounter ID Performer Location Encounter Start Date Encounter Closed Date Diagnosis/Indication Diagnosis SNOMED-CT Code Diagnosis ICD10 Code [id number] RAUL MAZA PA-C [facility] [address] [facility] [address] [place] [address] 06/14/2022 13:11:11 06/14/2022 13:49:47 Lumbar disc prolapse with radiculopathy 726788240 M51.16 Health Concerns Section Related Observation LastModified by Organization Detai ls LastModified Time None Recorded Concern Status LastModified by Organization Details LastModified Time None Recorded Advance Directives Directive None Recorded Payers Encounter Date Sequence Insurance Name Policy Number Policy Briggs Covered Member ID Briggs Member ID Guarantor Name 06/14/2022 1 [facility] [id number] Alfredo Petersen [id number] Carol Trinity Notes Date Note Type Note Provider Name and Address Organization Details Recorded Time 06/14/2022 text/html Carol comes in to day for the evaluation of her back pain and left-sided hip and thigh pain. She notes that back in March she had the onset of severe burning pain into her left anterior thigh and hip area. She also noted some numbness and tingling there as well. As time has gone on the searing pain that has gotten somewhat better but she still has a hypersensitivity and numbness into her thigh. She has had a history of lower back problems as well as radiating lower extremity pain, however those symptoms were not nearly as uncomfortable as this latest flareup. She has tried multiple conservative treatments in the past for managing that pain, however this time those were not helpful. She ultimately underwent an MRI of her lumbar spine in late March which showed a degenerative scoliosis with predominantly right-sided lateral recess and foraminal narrowing. She has up at the T12-L1 area a disc herniation that extends cranially. Since this MRI her symptoms have significantly improved. She mainly at this point has just numbness and some hypersensitivity in her thigh. RAUL MAZA PA-C [address] [place] [address], [phone], [facility] 06/17/2022 09:53:42 OBGyn Episode No OBEpisode recorded.
== END 2024-06-19 06:43 | disposition home or self-care (01) ==
LOC: HO.HMGCLDS 06:42
PROVIDERS: PCP Internal Medicine; Visit Provider Internal Medicine
DX: E78.5 Hyperlipidemia, unspecified (principal); F41.9 Anxiety disorder, unspecified; R53.83 Other fatigue; Z13.1 Encounter for screening for diabetes mellitus
CPT/HCPCS: 36415; 80053; 80061; 82306; 82607; 82746; 83036; 83540; 84443; 85025

== ENCOUNTER 2024-08-17 20:17 | Outpatient (REF) | payer BC, SELFPAY ==
--- NOTE | ~2024-08-17 | MR_ITS ---
CLINICAL HISTORY: M54.16 - Radiculopathy, lumbar region MRI lumbar spine without contrast Comparison: None Findings: S curve scoliosis in lumbar spine. Posterior bony alignment is normal. Large midline T11-12 disc herniation. This displaces the conus medullaris. No significant neural foraminal narrowing. T12-L1 left paramidline disc bulge and/or osteophyte. Facet hypertrophy is also noted without canal stenosis. L1-2 facet hypertrophy and transverse osteophyte. Moderate spinal stenosis with neural foraminal narrowing. L2-3 facet hypertrophy and transverse osteophyte mild spinal stenosis. Bilateral neural foraminal narrowing noted. L3-4 facet hypertrophy with mild spinal stenosis. Reactive changes noted in the endplates. Severe right neural foraminal narrowing. L4-5 facet hypertrophy with mild spinal stenosis. Bilateral neural foraminal narrowing. L5-S1 facet hypertrophy and mild disc bulge. No significant canal or neural foraminal narrowing. No acute bony signal abnormalities noted. Impression: Large midline T11-12 disc herniation Multilevel spinal canal and neural foraminal narrowing This document has been electronically signed by: Didier Ramos MD on 08/17/2024 22:07:04
--- OUTSIDE RECORDS SUMMARY | 2024-08-17 20:20 | XMS_ITS | Clinical Summary ---
Author Organization [facility] Address [address] [place] [address] Care Team Providers Care Window Dresser Name Role Phone Unavailable Primary Care Provider Unavailabl e Social History Tobacco Use Types Packs/Day Years Used Date Smoking Tobacco: Never Assessed Sex and Gender Information Value Date Recorded Sex Assigned at Not on file Gender Identity Not on file Sexual Orientation Not on file Plan of Treatment Health Maintenance Due Date Last Done Comments Hepatitis C Virus Screening 1966 HIV Screening 1979 DTaP/Tdap/Td Vaccines (1 - Tdap) 1985 Hepatitis B Vaccines (1 of 3 - 19+ 3-dose series) 1985 Pneumococcal Vaccines 50+ (1 of 1 - PCV) 2016 Zoster (Shingles) Vaccine (1 of 2) 2016 COVID-19 Vaccine (2023-2 5 season) 2024 Pneumococcal Vaccine: Pediat shola (0-5 Years) and At-Risk Patients (6 to 49 Years) Aged Out No longer eligible b ased on patient's age to complete this topic
--- OUTSIDE RECORDS SUMMARY | 2024-08-17 20:20 | XMS_ITS | Clinical Summary ---
Author Organization [facility] Address [address] [place] [address] Care Team Providers Care Superintendent Geophysical Laboratory Name Role Phone Laya Becerra MD Primary Care Provider [phone] Allergies No known active allergies Medications No known medications Active Problems Problem Noted Date Diagnosed Date Primary osteoarthritis of right knee 09/09/2019 Osteoarthritis 01/27/2011 Immunizations Name Administration Dates Next Due COVID-19, mRNA (Pfizer Pre F all 2022) Monovalent, 30 mcg/0.3 ml 11/27/2020,11/07/2020 Tdap 10/05/2017 Social History Tobacco Use Types Packs/Day Years Used Date Smoking Tobacco: Never Smokeless Tobacco: Never Alcohol Use Standard Drinks/Week Comments Not Asked 0 (1 standard drink = 0.6 oz pur e alcohol) Intimate Partner Violence Answer Date R ecorded Fear of Current or Ex-Partner Not on file Emotionally Abused Not on file 03/08/2023 Physically Abused Not on file 03/08/2023 Sexually Abused Not on file 03/08/2023 Feel Safe at Home Not on file 03/08/2023 Comments Unknown Sex and Gender Information Value Date Recorded Sex Assigned at Not on file Legal Sex Female 1:29 AM EDT Gender Identity Not on file Sexual Orientation Not on file Last Filed Vital Signs Vital Sign Reading Time Taken Comments Blood Pressure - - Pulse - - Temperature - - Respiratory Rate - - Oxygen Saturation - - Inhaled Oxygen Concentration - - Weight 68 kg (150 lb) 08/20/2010 11:42 AM EST Height 170.2 cm (5' 7 ) 08/20/2010 11:42 AM EST Body Mass Index 23.49 08/20/2010 11:42 AM EST Plan of Treatment Health Maintenance Due Date Last Done Comments Hepatitis C Screening 1966 Pap Smear 1982 Hep B (1 of 3 - 19+ 3-dose series) 1985 Mammogram/Breast Imaging 2006 Colon Cancer Screening 2011 Pneumococcal 50+ years (1 of 1 - PCV) 2016 Zoster (Shingrix) (1 of 2) 2016 COVID-19 Vaccine (3 - 2023-2 5 season) 2024 11/27/2020, 11/07/2020 Influenza (#1) 2024 DTaP/Tdap/Td (2 - Td or Tdap) 10/06/2027 10/05/2017 HPV Vaccine Aged Out No longer eligi ble based on patient's age to complete this topic Hep A Aged Out No longer eligi ble based on patient's age to complete this topic Hib Aged Out No longer eligi ble based on patient's age to complete this topic Meningococcal ACWY Aged Out No longer eligible based on patient's age to complete this topic Insurance FEE FOR SERVICE HMO Care Teams Superintendent Geophysical Laboratory Relationship Specialty Start Date End Date Laya Becerra MD [address] [place] [id number] PCP - General Internal Medicine 12/08/17
--- OUTSIDE RECORDS SUMMARY | 2024-08-17 20:20 | XMS_ITS | Encounter Summary ---
Author Organization [facility] Address [address] [place] [address] Care Team Providers Care Inside Wirer Name Role Phone Laya Becerra MD Primary Care Provider [phone] Encounter Details Date Type Department Care Team (Late st Contact Info) Description 09/05/2019 Orders Only [facility] [address] [place] [address] [address] [place] [address] Guanakito Choe MD Social History Tobacco Use Types Packs/Day Years Used Date Smoking Tobacco: Never Smokeless Tobacco: Never Alcohol Use Standard Drinks/Week Comments Not Asked 0 (1 standard drink = 0.6 oz pur e alcohol) Comments Unknown Sex and Gender Information Value Date Recorded Sex Assigned at Not on file Legal Sex Female 1:29 AM EDT Gender Identity Not on file Sexual Orientation Not on file documented as of this encounter Plan of Treatment Not on file documented as of this encounter Results * Due to [place] state law, this organization might not be sharing negative HIV tests. * XR KNEE ORTHO - RT (DX: KNEE PAIN *NO INJURY* M25.561/ 719.46)(AGE>=35, CAN WEIGHT-BEAR) FC (09/09/2019 10:19 AM EST) Anatomical Region Laterality Modality LOWER EXTREMITY Radiographic Yulia ging 09/09/2019 8:37 PM EST Narrative 09/09/2019 8:37 PM EST AP standing bilateral knees, 2 views right knee Comparison: None Findings: No fractures or dislocations. No significant joint effusion. Right sided tricompartmental spurring with medial and patellofemoral compartment predominance and mild medial compartment joint space narrowing are present. ??Left-sided mild medial and lateral compartment spurring are present.. No radiopaque foreign body. Impression: 1. ??Bilateral, right worse than left, degenerative changes described above. Procedure Note Kevin Louise MD - 09/09/2019 AP standing bilateral knees, 2 views right knee Comparison: None Findings: No fractures or dislocations. No significant joint effusion. Right sided tricompartmental spurring with medial and patellofemoral compartment predominance and mild medial compartment joint space narrowingare present. Left-sided mild medial and lateral compartment spurring arepresent.. No radiopaque foreign body. Impression: 1. Bilateral, right worse than left, degenerative changes describedabove. Guanakito Choe MD IMG XRAY NO CONTRAST ORDERABLES Final Result documented in this encounter Visit Diagnoses Diagnosis Pain Generalized pain Pain Generalized pain documented in this encounter Care Teams Inside Wirer Relationship Specialty Start Date End Date Laya Becerra MD [address] [place] [id number] PCP - General Internal Medicine 12/08/17 documented as of this encounter
--- OUTSIDE RECORDS SUMMARY | 2024-08-17 20:20 | XMS_ITS | Data Portability ---
Author Organization [place] - [place] [facility] Address [address] [address] Care Team Providers Care Equipment Oiler Name Role Phone ROYER BOONE Primary Care Provider ROYER BOONE Referring Provider [phone] Assessment No assessment recorded. Plan of Treatment Reminders Order Date Submit Date Provider Last Modified By Organization Details Last Modified Time Details Appointments FOLLOW UP 30 2024 11:30A M RAUL MAZA PA-C Not available Not available Not available Lab None recorded. Referral physical therapist referral 2021 022 [facility], [address] [place] [address], [phone], 06/14/2022 14:35:17 Procedures None recorded. Surgeries None recorded. [...] Results Imaging Date Name Status LastModified by [facility] Details LastModified Time 04/10/2022 MRI, lumbar spine, [...] Not Available No t Available amoxicillin 500 mg-potassiu m clavulanate 125 mg tablet TAKE 1 [...] t Available Vitals Date Recorded Body height Provider Name an d Address Organization Details Last Updated DateTime 06/14/2022 166.37 cm Porsha Brady MA [facility] 06/14/2022 13:20:39 Date Recorded Body mass index (BMI) Body weight Provider Name and Address Organization Details Last Updated DateTime 06/14/2022 27.9 kg/m2 61290.7 g Porsha Brady [facility] 06/14/2022 13:20:44 Date Recorded Pain severity - 0-10 verbal numeric rating [Score] - Reported Provider Name and Address Organization Details Last Updated DateTime 06/14/2022 7 Porsha Brady MA [facility] 06/14/2022 13:21:01 Social History Question Answer Notes LastModified by Organizat ion Details LastModified Time Tobacco Smoking Status Never Smoker Porsha moseley MA [facility] 06/14/2022 13:23:38 What Is Your Level Of Alcohol Consumption? Moderate Information not available 06/14/2022 Do You Use Any Illicit Or Recreational Drugs? No Information not available 06/14/2022 Sex: Unknown Functional Status None recorded. Mental Status None recorded. Family History Nothing Reported. Medical History Condition Response Cancer N Kidney Disease N Lung Disease N Thyroid Problems N Back Pain Y Diabetes N Heart Disease N Hypertension N Gynecological HistoryNo gynecological history recorded. Obstetrics History GPAL:G 0 P 0 0 0 0 Past Encounters Encounter ID Performer Location Encounter Start Date Encounter Closed Date Diagnosis/Indication Diagnosis SNOMED-CT Code Diagnosis ICD10 Code Diagnosis Note [id number] RAUL MAZA PA-C [address] [address] 06/14/2022 13:11:11 06/14/2022 13:49:47 Lumbar disc prolapse with radiculopathy 956805090 M51.16 We had a nice discussion today regarding her symptoms, MRI findings, and treatment options available. Her degenerati ve scoliosis is likely the cause of her chronic symptoms, however the disc herniation at T12-L1 is likely the acute change earlier in March. That seems to have started to resolve as most disc herniation s well. 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 At this point I like to have her get into some physical therapy to see if we can get her symptoms under better control and strengthen her core and lower extremitie s. She will follow-up after the physical therapy if her symptoms are still quite bothersome . All questions answered to her satisfacti on. Total visit time was 36 minutes in length including face-to-fa ce and non-face-t o-face time. Health Concerns Section Related Observation LastModified by Organization Detai ls LastModified Time None Recorded Concern Status LastModified by Organization Details LastModified Time None Recorded Advance Directives Directive None Recorded Payers Encounter Date Sequence Insurance Name Policy Number Policy Briggs Covered Member ID Briggs Member ID Guarantor Name 06/14/2022 1 [place] [facility] ([facility] [id number] Alfredo Petersen [id number] Carol Petersen Notes Date Note Type Note Provider Name [...] hypersensitivity in her thigh. RAUL MAZA PA-C [address] [place] [address], [phone], [facility] 06/17/2022 09:53:42 OBGyn Episode No OBEpisode recorded.
--- OUTSIDE RECORDS SUMMARY | 2024-08-17 20:20 | XMS_ITS | Clinical Summary ---
Author Organization [facility] Address [address] [place] [address] Care Team Providers Care Oil Pumper Name Role Phone Roque Ann MD Primary Care Provider Medical History Medical History Date Comments Other abnormal Papanicolaou smear of cervix and cervical HPV(795.09) DX:Other abnormal Papa nicolaou smear of cervix and cervical HPV(795.09); COMMENT: bryce 1 2002 Family History Medical History Relation Name Comments Other: cancer of the cervix Maternal Grandmother Relation Name Status Comments Maternal Grandmother Social History Tobacco Use Types Packs/Day Years Used Date Smoking Tobacco: Never Alcohol Use Standard Drinks/Week Comments Yes 0 (1 standard drink = 0.6 oz pur e alcohol) Sex and Gender Information Value Date Recorded Sex Assigned at Not on file Gender Identity Not on file Sexual Orientation Not on file Obstetrics History Plan of Treatment Health Maintenance Due Date Last Done Comments Breast Cancer Screening 1966 DTaP,Tdap,and Td Vaccines (1 - Tdap) 1985 Hepatitis B Vaccines (1 of 3 - 19+ 3-dose series) 1985 Cervical Cancer Screening: P ap Smear 1987 Zoster Vaccines (1 of 2) 2016 Colorectal Cancer Screening: Colonoscopy 06/19/2022 Depression Screening 06/19/2022 HIV Screening 06/19/2022 Hepatitis C Screening 06/19/2022 Social Influencers of Health Screening 06/19/2022 COVID-19 Vaccine (2023-2 5 season) 2024 Influenza Vaccine (#1) 2024 HIB Vaccines Aged Out No longer eligi ble based on patient's age to complete this topic HPV Vaccines Aged Out No longer eligi ble based on patient's age to complete this topic Hepatitis A Vaccines Aged Out No long er eligible based on patient's age to complete this topic IPV Vaccines Aged Out No longer eligi ble based on patient's age to complete this topic MMR Vaccines Aged Out No longer eligi ble based on patient's age to complete this topic Meningococcal ACWY Vaccine Aged Out N o longer eligible based on patient's age to complete this topic Pneumococcal Vaccine: Pediat rics (0 to 5 Years) and At-Risk Patients (6 to 64 Years) Aged Out No longer eligible b ased on patient's age to complete this topic RSV Immunization Patients Un my 20 months Aged Out No longer eligible b ased on patient's age to complete this topic Varicella Vaccines Aged Out No longer eligible based on patient's age to complete this topic Care Teams Oil Pumper Relationship Specialty Start Date End Date Roque Ann MD [address] [phone] PCP - General 11/07/02
== END 2024-08-17 20:18 | disposition home or self-care (01) ==
LOC: HO.MRI 20:17
PROVIDERS: PCP Internal Medicine; Visit Provider Internal Medicine
DX: M54.16 Radiculopathy, lumbar region (principal)
CPT/HCPCS: 72148

== ENCOUNTER → 2024-08-17 20:25 | Outpatient (BNV) | payer BC, SELFPAY | PROVIDERS: PCP Internal Medicine; Visit Provider Radiology Diagnostic Radiology | DX: M51.25 Other intervertebral disc displacement, thoracolumbar region (principal); M99.63 Osseous and subluxation stenosis of intervertebral foramina of lumbar region | CPT/HCPCS: 72148 ==

== ENCOUNTER 2025-06-20 08:54 | Outpatient (REF) | payer BC, SELFPAY ==
[2025-06-20 10:13] LABS: MANUAL DIFF FLAG NO
[2025-06-20 10:27] LABS: Appearance Urine Clear; Glucose Urine UA Negative (Negative); PH 7.0 (5.0-9.0); Specific Gravity - Urine 1.015 (1.005-1.025); UMIC TRIGGER UA YES
[2025-06-20 10:28] LABS: Hematocrit 37.7 % (37.0-47.0); Hemoglobin 12.4 g/dl (12.0-16.0); Imm Gran Abs Auto 0.01 X10*3/uL (0.00-0.03); Imm Gran Pct Auto 0.2 % (0.0-0.4); Lymphocytes Absolute Auto 1.6 X10*3/uL (1.2-4.9); Mean Corpuscular HGB Conc 32.9 g/dl (31.0-35.0); Mean Corpuscular Hemoglobin 31.5 pg (27.0-33.0); Mean Corpuscular Volume 95.7 fL (80.0-98.0); NRBC Abs Auto 0.000 X10*3/uL (0.0-0.012); NRBC Pct Auto 0.0 /100WBC (0.0-0.2); Platelet Count 305 X10*3/uL (160-400); Red Blood Count 3.94 X10*6/uL (4.20-5.50); White Blood Count 5.8 X10*3/uL (4.8-10.8)
[2025-06-20 11:24] LABS: Alanine Aminotransferase 18 U/L (0-31); Albumin Level 4.3 g/dL (3.5-5.0); Alkaline Phosphatase 86 U/L (39-117); Anion Gap 9 (12-20); Aspartate Amino Transferase 28 U/L (5-31); Blood Urea Nitrogen 12 mg/dL (9-16); Calcium 8.8 mg/dL (8.4-10.2); Carbon Dioxide 27 mmol/L (22-29); Chloride 109 mmol/L (96-108); Cholesterol 203 mg/dL (<200); Estimated Glomerular Filt Rate > 60; HDL Cholesterol 57 mg/dL (>40); Potassium 4.0 mmol/L (3.3-5.1); Sodium 141 mmol/L (135-145); Total Protein 6.7 g/dL (6.5-8.0); Triglycerides 66 mg/dL (<150)
== END 2025-06-20 08:55 | disposition home or self-care (01) ==
LOC: HO.HMGCLDS 08:54
PROVIDERS: PCP Internal Medicine; Visit Provider Internal Medicine
DX: Z00.00 Encounter for general adult medical examination without abnormal findings (principal); E78.5 Hyperlipidemia, unspecified; E55.9 Vitamin D deficiency, unspecified; Z13.31 Encounter for screening for depression; Z13.39 Encounter for screening examination for other mental health and behavioral disorders; R73.9 Hyperglycemia, unspecified
CPT/HCPCS: 36415; 80053; 80061; 81001; 82306; 84443; 85025; 96127

== ENCOUNTER 2025-06-20 10:15 | Outpatient (AMB) | payer BC, SELFPAY ==
--- NOTE | 2025-06-20 10:19 | MHC.PC.OV ---
Vital Signs 06/20/25 10:23 Height 5 ft 6 in Weight 165 lb BMI 26.6 BP 118/78 Blood Pressure Location Lt brachial Position Sitting Pulse 76 Pulse Source Pulse Oximeter Temp 98.4 F Temp Source Oral Pulse Oximetry (%) 97 Oxygen Delivery Method Room Air Intake Visit Reasons: PE Intake Note: Pt is here today for PE. Allergies Decongestant Allergy (Unknown, Uncoded 06/20/25 10:26) increased heart rate Medication List - Last Reconciled 06/20/25 by Laya Becerra MD valacyclovir (Valtrex) 2,000 mg (2 x 1 gram) PO Q12H Tobacco use date assessed: 06/20/25 Dental Screening Dental Screen Date: 06/20/25 Did you have a dental visit in the last 12 months?: Yes Did you have a dental problem in the last 6 months where you did not have access to dental care?: No Was dental information given to patient?: Patient has dentist HPI PE HPI Details Pt presents for PE PFSH Medical History (Updated 06/20/25 @ 10:47 by Laya Becerra MD) Fatigue Hyperlipidemia Diverticulitis Abdominal pain Gastritis Postmenopausal Palpitations Mammogram normal Annual physical exam DJD (degenerative joint disease), lumbar H/O mixed hyperlipidemia Anxiety Surgical History H/O total hysterectomy H/O colonoscopy Family History Father No problems noted. Mother No problems noted. Social History Housing: House Alcohol intake: current Alcohol intake frequency: a few times a week Alcohol type: wine Patient Tobacco Use Status: Never used Tobacco e-Cigarette/Vaping Use: Never Used service: No Current occupational status: employed Cognitive needs: No Hearing needs: No Vision needs: Yes Questionnaire PHQ-9 Over the last 2 weeks, how often have you been bothered by any of the following problems? 1. Little interest or pleasure in doing things: nearly every day 2. Feeling down, depressed, or hopeless: not at all 3. Trouble falling or staying asleep, or sleeping too much: several days 4. Feeling tired or having little energy: several days 5. Poor appetite or overeating: not at all 6. Feeling bad about yourself - or that you are a failure or have let yourself or your family down: not at all 7. Trouble concentrating on things, such as reading the newspaper or watching television: not at all 8. Moving or speaking so slowly that other people could have noticed. Or the opposite - being so fidgety or restless that you have been moving around a lot more than usual: not at all 9. Thoughts that you would be better off or of hurting yourself in some way: not at all Total score: 5 Depression Screening Interpretation: Negative Depression Screening Done: Yes 51729 - PHQ-9 Billing: Yes Source: Developed by Drs. Julien Bellamy, Farheen Mallory, Stanislaw Hernadez and colleagues, with an educational jonnie from [employer] Thrive Questionnaire Date Thrive assessed: 06/20/25 I am a: Patient What is your living situation today?: I have a steady place to live Within the past 12 months, did the food you bought not last and you didn't have the money to get more?: I choose not to answer this question Within the past 12 months, did you worry whether your food would run out before you got money to buy more?: Never true Do you have trouble paying for medicines?: No Do you have trouble getting transportation to medical appointments?: No Do you have trouble paying your heating and electricity bill?: No Do you have trouble taking care of your child, family member or friend?: No Do you have trouble with day-to-day activities such as bathing, preparing meals, shopping, managing finances, etc.?: No Are you currently unemployed and looking for a job?: No Are you interested in more education?: No Please select the resources that you would like help with: None Currently or been in a relationship where the following occur: I choose not to answer THRIVE Score: 0 AUDIT C Alcohol Use Questionnaire (AUDIT-C) 1. How often do you have a drink containing alcohol?: 2-4 times a month 2. How many drinks containing alcohol do you have on a typical day when you are drinking?: 1 or 2 3. How often do you have six or more drinks on one occasion?: Never Total Score: 2 STEVO-7 AMB Questionnaire STEVO-7 Date STEVO - 7 assessed: 06/20/25 Feeling nervous, anxious, or on edge: 0 = Not at all Not being able to stop or control worryin = Not at all Worrying too much about different things: 0 = Not at all Trouble relaxin = Not at all Being so restless that it is hard to sit still: 0 = Not at all Becoming easily annoyed or irritable: 0 = Not at all Feeling afraid as if something awful might happen: 0 = Not at all Total STEVO-7 score (0-4 normal; 5-9 mild; 10-14 moderate; 15-21 severe): 0 Source: Developed by Drs. Julien Bellamy, Farheen Mallory, Stanislaw Hernadez and colleagues, with an educational jonnie from [employer] STEVO-7 Assessment Billing STEVO-7 Assessment Tool: STEVO-7 Assessment 24275 Review of Systems Const All systems reviewed & are unremarkable except as noted in HPI and below Eyes Reports no additional complaints ENT Reports no additional complaints Card Reports no additional complaints Resp Reports no additional complaints GI Reports no additional complaints Reports no additional complaints Physical exam (Primary Care) Vital Signs: Last Vital Signs Temp 98.4 F 06/20/25 10:23 Pulse 76 06/20/25 10:23 BP 118/78 06/20/25 10:23 Pulse Ox 97 06/20/25 10:23 Oxygen Delivery Method Room Air 06/20/25 10:23 BMI result Body Mass Index 26.6 Tobacco/Smoking Status: Tobacco use Status Tobacco use date assessed 06/20/25 06/20/25 10:31 Patient Tobacco Use Status Never used Tobacco 06/20/25 10:19 e-Cigarette/Vaping Use Never Used 06/20/25 10:19 PHQ-9: PHQ-9 Score PHQ-9: Total score 5 06/20/25 10:31 Depression Screening Interpretation: Negative Thrive Assessment: Date of Thrive Assessment Date Thrive assessed 06/20/25 12 10:31 Currently or been in a relationship where the following occur: I choose not to answer Const General: no acute distress HENMT Head: Yes normal to inspection Ears: TM's normal bilaterally Face and sinus: Yes normal facial exam Throat: Yes posterior oropharynx normal Eyes General: appearance normal, both eyes and all related structures Neck Neck: Yes no lymphadenopathy and Yes supple Resp Effort & Inspection: normal respiratory effort Auscultation: clear to auscultation bilaterally Cardio Rhythm: regular rhythm Heart sounds: S1 normal heart sound present and S2 normal heart sound present GI Inspection: Yes normal to inspection Palpation (GI): Soft to palpation Percussion: Yes normal to percussion Auscultation: normal bowel sounds Coding Level of Care Code Est Pt Prev Care 40-64y(50145) Diagnoses Hyperglycemia R73.9 Hyperlipidemia E78.5 Annual physical exam Z00.00 Additional Codes STEVO-7 Assessment Billing - STEVO-7 Assessment Tool: STEVO-7 Assessment 69640 ([id number]) PHQ-9 - 29197 - PHQ-9 Billing: Yes ([id number]) Assessment & Plan Assessment & Plan (1) Hyperglycemia: Code(s): R73.9 - Hyperglycemia, unspecified Category: Medical Plan: check A1C, ADA diet (2) Hyperlipidemia: Comment: Patient declined taking statin Code(s): E78.5 - Hyperlipidemia, unspecified Category: Medical Plan: cont low-cholesterol diet regular exercise (3) Annual physical exam: Code(s): Z00.00 - Encounter for general adult medical examination without abnormal findings Category: Medical Plan: Well-balanced diet regular physical activity discussed with the patient. She is up-to-date with mammogram and will have Cologuard check for colon cancer screening. Blood work results from this morning are pending. Orders: Orders Comprehensive [place]. Panel Fast 1 Year E55.9 - Vitamin D deficiency, unspecified, E78.5 - Hyperlipidemia, unspecified, R73.9 - Hyperglycemia, unspecified Complete Blood Count Auto Diff 1 Year E55.9 - Vitamin D deficiency, unspecified, E78.5 - Hyperlipidemia, unspecified, R73.9 - Hyperglycemia, unspecified TSH reflex Free T4 1 Year E55.9 - Vitamin D deficiency, unspecified, E78.5 - Hyperlipidemia, unspecified, R73.9 - Hyperglycemia, unspecified Hemoglobin A1c 1 Year E55.9 - Vitamin D deficiency, unspecified, E78.5 - Hyperlipidemia, unspecified, R73.9 - Hyperglycemia, unspecified Hemoglobin A1c Today R73.9 - Hyperglycemia, unspecified Lipid Panel 1 Year E55.9 - Vitamin D deficiency, unspecified, E78.5 - Hyperlipidemia, unspecified, R73.9 - Hyperglycemia, unspecified Vitamin D 25-OH Total 1 Year E55.9 - Vitamin D deficiency, unspecified, E78.5 - Hyperlipidemia, unspecified, R73.9 - Hyperglycemia, unspecified UA w Microscopic Today E55.9 - Vitamin D deficiency, unspecified, E78.5 - Hyperlipidemia, unspecified, R73.9 - Hyperglycemia, unspecified Referrals Cologuard Test Z12.11 - Encounter for screening for malignant neoplasm of colon, Z12.12 - Encounter for screening for malignant neoplasm of rectum Medications: Discontinued escitalopram oxalate (Lexapro) Discontinued Reason: Doctor's Order 10 mg PO DAILY 90 tabs 1RF lorazepam Discontinued Reason: Doctor's Order 0.5 mg PO DAILY PRN 2 tabs 0RF anxiety
[2025-06-20 10:23] VITALS: BP 118/78; PULSE 76; TEMP 36.9; O2SAT 97; BMI 26.6
== END 2025-06-20 11:05 | disposition home or self-care (01) ==
LOC: HO.HMCC 10:16
PROVIDERS: PCP Internal Medicine; Visit Provider Internal Medicine
DX: Z00.00 Encounter for general adult medical examination without abnormal findings (principal); R73.9 Hyperglycemia, unspecified; E78.5 Hyperlipidemia, unspecified